=== PATIENT | male | born 1955 | race Two or more races ===

== ENCOUNTER 2017-05-13 15:57 | Inpatient (IN) | payer MEDICAID ==
[~2017-05-13] VITALS: Ht 180.3 cm; Wt 103.8 kg
[2017-05-13] MEDS ORDERED: ONDANSETRON 2MG/ML, 2ML IVPush ONE (16:30)
[2017-05-13] MEDS ORDERED: INSULIN REGULAR 100 UNITS/ML, 3ML VIAL IVPush ONE (16:30)
[2017-05-13] MEDS ORDERED: SODIUM CHLORIDE 0.9% 1,000ML IVBOLUS ONE (16:30)
[2017-05-13 17:08] LABS: PH, VENOUS 7.314 pH (7.320-7.420)
[2017-05-13 17:20] LABS: ASPARTATE AMINO TRANSFERASE 27 U/L (15-37); BLOOD UREA NITROGEN 37 mg/dL (7-18)
[2017-05-13 17:27] LABS: IS PT STATUS REG ER OR PRE ER? YES
[2017-05-13] MEDS ORDERED: INSULIN REGULAR 100 UNITS/ML, 3ML VIAL ONE (17:42)
[2017-05-13] MEDS ORDERED: ONDANSETRON 2MG/ML, 2ML ONE (17:42)
[2017-05-13] MEDS ORDERED: BUSP5TAB2 PO (17:56)
[2017-05-13] MEDS ORDERED: ATOR80TA75 PO (17:56)
[2017-05-13] MEDS ORDERED: INSU100V8 SQ (17:56)
[2017-05-13] MEDS ORDERED: PRAZ2CAP2 PO (17:56)
[2017-05-13] MEDS ORDERED: ASPI-650 PO (17:56)
[2017-05-13] MEDS ORDERED: HYDR50TA3 PO (17:56)
[2017-05-13] MEDS ORDERED: INSU100C SQ-INSULIN (17:56)
[2017-05-13] MEDS ORDERED: RISP1TAB45 PO (17:56)
[2017-05-13] MEDS ORDERED: GLIP5TAB10 PO (17:56)
[2017-05-13] MEDS ORDERED: SODIUM CHLORIDE 0.9% 1,000 ML IV SCH (19:24)
[2017-05-13] MEDS ORDERED: HEPARIN 5,000 UNITS/ML, 1ML SQ SCH (19:30)
[2017-05-13] MEDS ORDERED: NICOTINE 7 MG/24 HR PATCH.TD24 TD SCH (19:30)
[2017-05-13] MEDS ORDERED: ONDANSETRON ODT 4 MG PO PRN (19:30)
[2017-05-13] MEDS ORDERED: POLYETHYLENE GLYCOL 17 GM PACKET PO PRN (19:30)
[2017-05-13] MEDS ORDERED: ACETAMINOPHEN 325 MG TABLET PO PRN (19:30)
[2017-05-13] MEDS ORDERED: LABETALOL 5MG/ML, 20ML IVPush PRN (19:30)
[2017-05-13] MEDS ORDERED: DEXTROSE 50%, 50ML SYRINGE IVPush PRN (19:30)
[2017-05-13] MEDS ORDERED: PHARMACY MAY ADJ FOR RENAL FX MC PRN (19:30)
[2017-05-13] MEDS ORDERED: DOCUSATE 100 MG CAPSULE PO PRN (19:30)
[2017-05-13] MEDS ORDERED: TEMAZEPAM 15 MG CAPSULE PO PRN (19:30)
[2017-05-13] MEDS ORDERED: GLUCAGON 1 MG IM PRN (19:30)
[2017-05-13 20:21] VITALS: BP 125/75
[2017-05-13] MEDS ORDERED: ATORVASTATIN 20 MG TABLET PO SCH (21:00)
[2017-05-13] MEDS ORDERED: SODIUM CHLORIDE FLUSH 10ML SYR IVF SCH (21:00)
[2017-05-13] MEDS ORDERED: BUSPIRONE 5 MG TABLET PO SCH (21:00)
[2017-05-13] MEDS ORDERED: INSULIN ASPART 100 UNITS/ML, PEN SQ-INSULIN SCH (21:00)
[2017-05-13] MEDS ORDERED: PRAZOSIN 2 MG CAPSULE PO SCH (21:00)
[2017-05-13] MEDS ORDERED: INSULIN DETEMIR 100 UNITS/ML, PEN SQ-INSULIN SCH (21:00)
[2017-05-13] MEDS ORDERED: RISPERIDONE 1 MG TABLET PO SCH (21:00)
== END 2017-05-14 01:27 | disposition left against medical advice (07) | DRG 682 ==
LOC: ED 16:36 → EDIP 18:22 → 3NE 20:18
DX: N17.0 Acute kidney failure with tubular necrosis (principal); E11.00 Type 2 diabetes mellitus with hyperosmolarity without nonketotic hyperglycemic-hyperosmolar coma (NKHHC); E87.2 Acidosis; E44.0 Moderate protein-calorie malnutrition; E66.9 Obesity, unspecified; I10 Essential (primary) hypertension; E78.5 Hyperlipidemia, unspecified; F17.210 Nicotine dependence, cigarettes, uncomplicated; N28.1 Cyst of kidney, acquired; E11.21 Type 2 diabetes mellitus with diabetic nephropathy; Z79.4 Long term (current) use of insulin; Z88.8 Allergy status to other drugs, medicaments and biological substances; Z81.8 Family history of other mental and behavioral disorders; Z83.3 Family history of diabetes mellitus; Z82.49 Family history of ischemic heart disease and other diseases of the circulatory system; Z68.31 Body mass index [BMI] 31.0-31.9, adult; Z59.0 Homelessness
CPT/HCPCS: 36415; 71010; 76770; 80053; 81001; 82010; 82803; 82962; 83036; 83735; 84100; 84484; 85025; 87040; 93005; 96361; 96374; 96375; J1644; J1815; J2405; J7030